=== PATIENT | female | born 1945 | race Caucasian/White ===

== ENCOUNTER 2016-12-10 10:28 | Outpatient (CLI) | payer MEDICARE ==
--- NOTE | 2016-12-10 21:40 | RAD ---
LEFT HIP TWO VIEWS 12/10/16 No fracture or other acute bony change was seen. The joint space is normal in width and the articula r surfaces are smooth. Arthritic changes are not prominent. IMPRESSION: No evidence of recent injury. POS: HOME
--- NOTE | 2016-12-10 21:53 | RAD ---
LEFT SHOULDER THREE VIEWS 12/10/16 There has been prior axillary node dissection. Clips are noted in the vicinity. I am not impressed b y significant arthritic change. The glenohumeral joint and AC joint were unremarkable. There is no a ean of bony destruction. IMPRESSION: No acute finding. POS: HOME
== END 2016-12-10 10:29 | disposition home or self-care (01) ==
LOC: BURRAD 10:28
PROVIDERS: ATTEND Family Medicine
DX: M25.512 Pain in left shoulder (principal); M25.552 Pain in left hip

== ENCOUNTER 2018-12-21 22:42 | Emergency (ER) | payer MEDICARE ==
[2018-12-21 23:13] LABS: Hemoglobin 12.6 g/dL (12.0-16.0); Mean Corpuscular HGB CONC 34.2 g/dL (32.0-36.0); Mean Corpuscular Hemoglobin 31.9 pg (27.0-31.0); Mean Corpuscular Volume 93.2 fL (78.0-98.0); Mean Platelet Volume 7.6 fL (7.4-10.4); Platelet Count 215 thou/uL (130-400); RBC Distribution Width 12.3 % (11.5-14.5); Red Blood Cell (RBC) Count 3.96 mill/uL (4.20-5.40); White Blood Cell (WBC) Count 8.6 thou/uL (4.8-10.8)
[2018-12-21 23:21] LABS: ALT (SGPT) 12 U/L (8-55); AST (SGOT) 20 U/L (5-34); Albumin 4.2 g/dL (3.4-4.8); Alkaline Phosphatase 50 U/L (40-150); Anion Gap 15 mmol/L (10-20); BUN (Urea Nitrogen) 30 mg/dL (9.8-20.1); Bilirubin, Total 0.3 mg/dL (0.2-1.2); Calc. Creatinine Clearance 0 mL/min (70-130); Calcium 9.5 mg/dL (7.8-10.44); Carbon Dioxide 24 mmol/L (23-31); Chloride 108 mmol/L (98-107); Estimated GFR-MDRD 29; Globulin 2.7 g/dL (2.4-3.5); Glucose 130 mg/dL (83-110); Potassium 3.6 mmol/L (3.5-5.1); Protein, Total 6.9 g/dL (6.0-8.3); Sodium 143 mmol/L (136-145)
[2018-12-21 23:30] LABS: #Basophils 0.1 thou/uL (0.0-0.2); #Eosinphils 0.3 thou/uL (0.0-0.7); #Lymphocytes 2.9 thou/uL (1.20-3.40); #Monocytes 0.6 thou/uL (0.11-0.59); #Neutrophils 5.1 thou/uL (1.40-6.50); %Basophils 1.4 % (0.0-1.0); %Eosinophils 3.1 % (0.0-10.0); %Lymphocytes 32.5 % (21.0-51.0); %Monocytes 6.6 % (0.0-10.0); %Neutrophils 56.5 % (42.0-75.0); Platelet Morphology Comment Appears Adequate; RBC Morphology Normal
[2018-12-21 23:31] LABS: MDiff Complete? YES; Manual Diff?? NO
[2018-12-21] MEDS ORDERED: Enoxaparin Sodium 100 MG/ML SYRINGE ONE (23:45)
--- NOTE | 2018-12-22 08:07 | RAD ---
CHEST ONE VIEW: INDICATIONS: History of heart palpitations. COMPARISON: 07/29/2008 FINDINGS: Chronic lung changes are stable. Heart size is normal. Vascular calcifications of the aortic arch a re stable. No acute osseous abnormality is evident. IMPRESSION: No acute abnormality. POS: [facility]
== END 2018-12-21 23:50 | disposition short-term general hospital (02) ==
LOC: BURERS 22:42
DX: I48.91 Unspecified atrial fibrillation (principal); F17.210 Nicotine dependence, cigarettes, uncomplicated; F41.9 Anxiety disorder, unspecified; Z79.899 Other long term (current) drug therapy; Z79.82 Long term (current) use of aspirin
CPT/HCPCS: 71045; 80053; 83880; 84484; 85025; 93005; 96365; 96372; 96376; J1650

== ENCOUNTER 2019-06-21 11:34 | Outpatient (CLI) | payer MEDICARE ==
[~2019-06-21 11:34] MED LIST: Iopamidol 370 76% 100 ML VIAL ONE
--- NOTE | 2019-06-21 18:47 | CT ---
CT OF THE CHEST WITH CONTRAST: Date: 06-21-19 Comparison: Portable chest film, 06-15-19 that showed a possible pleural based density over the right lower chest. Axial slices were initially acquired followed by coronal and sagittal reconstructions. C omparison is also made with a 06-02-18 CT of the thorax. FINDINGS: The density seen on the recent chest x-ray appear to be due to overlying soft tissues from the inner aspect of the patient's arm. There is no evidence of pleural based mass, parenchymal mass, or pleural effusion today. The lungs are clear. The mediastinum showed no mass or significant adenopathy. Some faint calcification is seen in parts of the aorta and there is some calcification of some of the lupis nary arteries. Scans went down into the upper part of the abdomen. All of the === scan which showed no defects. The spleen, pancreas, and gallbladder appeared normal. Both adrenal glands appear normal. The upper half of each kidney was shown and the scanned areas were unremarkable. Some rounded densities in the right axillary region appear to be dilated veins. Looking back to the 2 018 scan they were present then and have not changed at all. Thus, there is no real concern. IMPRESSION: 1. No evidence of thoracic mass. The density seen on the recent portable chest x-ray is apparently du e to overlap of the soft tissues from the patient's inner arm that was next to her chest wall. 2. No evidence of metastatic disease. 3. Coronary arterial sclerosis. POS: HOME
== END 2019-06-21 11:35 | disposition home or self-care (01) ==
LOC: BURCT 11:34
PROVIDERS: ATTEND Family Medicine
DX: R93.89 Abnormal findings on diagnostic imaging of other specified body structures (principal); I25.10 Atherosclerotic heart disease of native coronary artery without angina pectoris
CPT/HCPCS: 71260; Q9967

== ENCOUNTER 2019-11-10 03:19 | Emergency (ER) | payer MEDICARE, OTHER ==
[2019-11-10] MEDS ORDERED: Metoprolol Tartrate 5 MG/5 ML VIAL ONE ×3 (03:36→04:11)
[2019-11-10 03:55] LABS: Mean Corpuscular HGB CONC 32.8 g/dL (32.0-36.0); Mean Corpuscular Hemoglobin 31.7 pg (27.0-31.0); Mean Corpuscular Volume 96.8 fL (78.0-98.0); Platelet Count 170 thou/uL (130-400); RBC Distribution Width 12.3 % (11.5-14.5); Red Blood Cell (RBC) Count 4.11 mill/uL (4.20-5.40); White Blood Cell (WBC) Count 5.5 thou/uL (4.8-10.8)
[2019-11-10 04:00] LABS: ALT (SGPT) 15 U/L (8-55); AST (SGOT) 21 U/L (5-34); Albumin 4.2 g/dL (3.4-4.8); Alkaline Phosphatase 42 U/L (40-110); Anion Gap 18 mmol/L (10-20); BUN (Urea Nitrogen) 28 mg/dL (9.8-20.1); Bilirubin, Total 0.3 mg/dL (0.2-1.2); Calc. Creatinine Clearance 0 mL/min (70-130); Calcium 9.4 mg/dL (7.8-10.44); Carbon Dioxide 20 mmol/L (23-31); Chloride 104 mmol/L (98-107); Estimated GFR-MDRD 28; Globulin 2.8 g/dL (2.4-3.5); Glucose 106 mg/dL (83-110); Potassium 3.9 mmol/L (3.5-5.1); Sodium 138 mmol/L (136-145)
[2019-11-10 04:15] LABS: Band 7 % (5-11); Eosinophils 4 % (0-10); Lymphocytes 10 % (21-51); MDiff Complete? YES; Monocytes 11 % (0-10); Neutrophil 66 % (42-75); Platelet Morphology Comment Appears Adequate; RBC Morphology Normal; Reactive Lymphocytes 1 % (0-10)
[2019-11-10] MEDS ORDERED: Diltiazem 125 MG/25 ML ONE (05:03)
== END 2019-11-10 05:50 | disposition short-term general hospital (02) ==
LOC: BURERS 03:19
DX: I48.92 Unspecified atrial flutter (principal); F41.9 Anxiety disorder, unspecified; F17.210 Nicotine dependence, cigarettes, uncomplicated; Z85.3 Personal history of malignant neoplasm of breast; Z79.899 Other long term (current) drug therapy
CPT/HCPCS: 80053; 84443; 84484; 85025; 93005; 94760; 96374; 96375; 96376

== ENCOUNTER 2022-02-06 12:05 | Emergency (ER) | payer OTHER, MEDICARE | END 2022-02-06 13:18 | disposition home or self-care (01) | LOC: BURERS 12:05 | DX: S46.911A Strain of unspecified muscle, fascia and tendon at shoulder and upper arm level, right arm, initial encounter (principal); I10 Essential (primary) hypertension; I48.91 Unspecified atrial fibrillation; F17.210 Nicotine dependence, cigarettes, uncomplicated; W01.0XXA Fall on same level from slipping, tripping and stumbling without subsequent striking against object, initial encounter ==

== ENCOUNTER 2022-11-16 11:14 | Emergency (ER) | payer MEDICARE, OTHER | END 2022-11-16 11:33 | disposition home or self-care (01) | LOC: BURERS 11:14 | DX: R50.9 Fever, unspecified (principal); R51.9 Headache, unspecified; Z20.822 Contact with and (suspected) exposure to COVID-19; I10 Essential (primary) hypertension; F17.210 Nicotine dependence, cigarettes, uncomplicated | CPT/HCPCS: 99283 ==

== ENCOUNTER 2024-07-26 12:50 | Outpatient (CLI) | payer MEDICARE | END 2024-07-26 12:51 | disposition home or self-care (01) | LOC: BURRAD 12:50 | PROVIDERS: ATTEND Family Medicine | DX: M54.50 Low back pain, unspecified (principal); M47.816 Spondylosis without myelopathy or radiculopathy, lumbar region; Z98.1 Arthrodesis status | CPT/HCPCS: 72100 ==